=== PATIENT | female | born 1975 | race Caucasian/White ===

== ENCOUNTER → 2017-12-16 | Outpatient (CLI) | payer BC ==
[~2017-12-16] MED LIST: LOR5/325 PO; SPIR25TA78 PO
--- NOTE | 2017-12-16 15:54 | RADIOLOGY IMAGING REPORT ---
[place]AC[place] [facility] [place]IENT NAME: Aileen Flannery : 1975 MR: [id number] V: [id number] EXAM DATE: ORDERING PHYSICIAN: MAYO ADDISON TECHNOLOGIST: Location: [facility] [place] Patient: Aileen Flannery : 1975 Visit/Account:[id number] Date of Sevice: 12/16/2017 Exam type: KUB SINGLE VIEW ABDOMEN History: Uterine leiomyoma, Comparison: None. Findings: There is an IUD located in the left-sided the pelvis. The arms of the IUD are projecting obliquely. The distal portion of the IUD is pointing towards the left hip. The exact location should be confir med with ultrasound. The bowel gas pattern is nonspecific. No gross evidence of organomegaly. IMPRESSION: 1. Oblique appearance of the IUD in the left-sided the pelvis. Confirmation of location with pelvic ultrasound is recommended Report Dictated By: Jaja Salvador MD at 12/16/2017 3:46 PM Report E-Signed By: Jaja Salvador MD at 12/16/2017 3:51 PM WSN:[id number]
== END ==
LOC: RAD 14:28
PROVIDERS: ATTEND Radiology Diagnostic Radiology
DX: Z97.5 Presence of (intrauterine) contraceptive device (principal)
CPT/HCPCS: 74018